=== PATIENT | male | born 1985 | race Caucasian/White ===

== ENCOUNTER 2016-12-09 10:14 | Emergency (ER) | payer BC ==
[2016-12-09 10:17] VITALS: BP 141/83; PULSE 87; RESP 20; TEMP 98.1
[2016-12-09] MEDS ORDERED: PROPARACAINE 0.5% OPHTH DROPS 15 ML BTL LEFT EYE SCH (10:45)
--- NOTE | 2016-12-09 10:52 | ED ---
General Adult HPI - General Chief complaint: Eye Problems Stated complaint: FB in eye Time Seen by Provider: 12/09/16 10:25 Source: patient, RN notes reviewed, old records reviewed Mode of arrival: ambulatory Limitations: no limitations - History of Present Illness Initial comments: This is a 31-year-old male ER for evaluation. The patient presents for evaluation of eye pain, left eye pain and drainage, patient has no injury, no noted foreign body and no vision changes. Eye is not painful is red and injected with drainage. Patient's symptoms for 2 days, and has just been consistent. Patient has never had problems with eyes before. No vision changes. - Related Data Allergies Allergy/AdvReac Type Severity Reaction Status Date / Time No Known Allergies Allergy Verified 12/09/16 10:17 Review of Systems ROS Statement: Those systems with pertinent positive or pertinent negative responses have been documented in the HPI. ROS Other: All systems not noted in ROS Statement are negative. Past Medical History Past Medical History: No Reported History History of Any Multi-Drug Resistant Organisms: None Reported Past Surgical History: No Surgical Hx Reported Past Psychological History: No Psychological Hx Reported Smoking Status: Current every day smoker Past Alcohol Use History: Occasional Past Drug Use History: None Reported General Exam Limitations: no limitations General appearance: alert, in no apparent distress Head exam: Present: atraumatic, normocephalic, normal inspection Eye exam: Present: normal appearance, PERRL, EOMI, conjunctival injection ( Generalized), other (Fluorescein test shows no abrasion, no foreign object found ). Absent: scleral icterus, periorbital swelling ENT exam: Present: normal exam, mucous membranes moist Neck exam: Present: normal inspection. Absent: tenderness, meningismus, lymphadenopathy Respiratory exam: Present: normal lung sounds bilaterally. Absent: respiratory distress, wheezes, rales, rhonchi, stridor Cardiovascular Exam: Present: regular rate, normal rhythm, normal heart sounds. Absent: systolic murmur, diastolic murmur, rubs, gallop, clicks GI/Abdominal exam: Present: soft, normal bowel sounds. Absent: distended, tenderness, guarding, rebound, rigid Extremities exam: Present: normal inspection, full ROM, normal capillary refill. Absent: tenderness, pedal edema, joint swelling, calf tenderness Back exam: Present: normal inspection Neurological exam: Present: alert, oriented X3, CN II-XII intact Psychiatric exam: Present: normal affect, normal mood Skin exam: Present: warm, dry, intact, normal color. Absent: rash Course Vital Signs 12/09/16 10:15 Temperature 98.1 F Pulse Rate 87 Respiratory 20 Rate Blood Pressure 141/83 O2 Sat by Pulse 97 Oximetry Medical Decision Making - Medical Decision Making 31 male the ER for evaluation of eye pain, left eye conjunctivitis, likely bacterial she with appropriate antibiotic drops and discharged home Disposition Clinical Impression: Conjunctivitis, left eye, Bacterial conjunctivitis Disposition: ADMITTED IP TO THIS HOSP Condition: Fair Instructions: Conjunctivitis (ED) Referrals: Rambo Ruiz MD [Primary Care Provider] - 1-2 days
[2016-12-09] MEDS ORDERED: PROPARACAINE 0.5% OPHTH DROPS 15 ML BTL ONE (13:53)
== END 2016-12-09 11:03 | disposition home or self-care (01) ==
LOC: EC 10:14
DX: H10.89 Other conjunctivitis (principal); F17.200 Nicotine dependence, unspecified, uncomplicated
CPT/HCPCS: 99283

== ENCOUNTER 2017-12-19 18:47 | Emergency (ER) | payer BC ==
[2017-12-19 19:02] VITALS: BP 144/105; PULSE 90; RESP 20; TEMP 99.1
--- NOTE | 2017-12-19 19:32 | ED ---
General Adult HPI - General Chief complaint: Extremity Problem,Nontraumatic Stated complaint: Shoulder pain Time Seen by Provider: 12/19/17 19:13 Source: patient Mode of arrival: ambulatory Limitations: no limitations - History of Present Illness Initial comments: 32-year-old female presents to the emergency department for a chief complaint of left sided upper back pain times one month. Patient states it feels like a muscle spasm. Patient states he saw his doctor who diagnosed with a muscle spasm and prescribed him Motrin and Flexeril. Patient states that Motrin does not help. Patient states the Flexeril seems to make it worse so he stopped taking it. 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 Patient denies any pain in the neck or spine. Patient denies any pain in the shoulder or left arm. Patient has no other complaints at this time including shortness of breath, chest pain, abdominal pain, nausea or vomiting, headache, or visual changes. - Related Data Previous Rx's Medication Instructions Recorded Polymyxin B-Trimethoprim Ophth 2 drops LEFT EYE Q4H #1 bottle 12/09/16 [Polytrim Opthalmic] Diazepam [Valium] 5 mg PO Q8HR PRN 3 Days #9 tab 12/19/17 Allergies Allergy/AdvReac Type Severity Reaction Status Date / Time No Known Allergies Allergy Verified 12/09/16 10:17 Review of Systems ROS Statement: Those systems with pertinent positive or pertinent negative responses have been documented in the HPI. ROS Other: All systems not noted in ROS Statement are negative. Past Medical History Past Medical History: No Reported History History of Any Multi-Drug Resistant Organisms: None Reported Past Surgical History: No Surgical Hx Reported Past Psychological History: No Psychological Hx Reported Smoking Status: Current every day smoker Past Alcohol Use History: Occasional Past Drug Use History: None Reported General Exam Limitations: no limitations General appearance: alert, in no apparent distress Head exam: Present: atraumatic, normocephalic, normal inspection Eye exam: Present: normal appearance, PERRL, EOMI. Absent: scleral icterus, conjunctival injection, periorbital swelling ENT exam: Present: normal exam, normal oropharynx, mucous membranes moist Neck exam: Present: normal inspection, full ROM. Absent: tenderness, meningismus, lymphadenopathy Respiratory exam: Present: normal lung sounds bilaterally. Absent: respiratory distress, wheezes, rales, rhonchi, stridor Cardiovascular Exam: Present: regular rate, normal rhythm, normal heart sounds. Absent: systolic murmur, diastolic murmur, rubs, gallop, clicks Extremities exam: Present: full ROM (Full range of motion in the left shoulder.) , normal capillary refill (Refill less than 2 seconds and radial pulse 2+ in the left shoulder.), other (Sensation intact in the left upper extremity.). Absent: tenderness (No tenderness in the left shoulder.) Back exam: Present: full ROM, tenderness (Patient has tenderness between the scapula and thoracic spine on the left side upper back.), muscle spasm (There is a palpable muscle spasm between the scapula and thoracic spine on the left side of the back. When palpated it reproduces the pain.), paraspinal tenderness , vertebral tenderness, other. Absent: CVA tenderness (R), CVA tenderness (L) Neurological exam: Present: alert, oriented X3, CN II-XII intact Course Vital Signs 12/19/17 18:59 Temperature 99.1 F Pulse Rate 90 Respiratory 20 Rate Blood Pressure 144/105 O2 Sat by Pulse 98 Oximetry Medical Decision Making - Medical Decision Making 32-year-old male presents to the emergency department for a chief complaint of left upper back pain. Patient saw his primary and was given Motrin and Flexeril. No injuries. No neck pain or back pain otherwise. 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 On exam patient has a palpable knot between the left scapula and thoracic spine. No tenderness along the spine or shoulder. This is likely the cause of his pain. Patient will be given Valium. He was educated to not take this while driving or operating any machinery. He will continue Motrin. He will get a massage to see if that helps loosen up the muscle. He will apply heat to the area. He will follow up with primary care in 1-2 days or after massage if it does not get better. Patient states his primary is open to discussing more options if the pain does not subside. Disposition Clinical Impression: Muscle spasm Disposition: HOME SELF-CARE Condition: Good Instructions: Muscle Spasm (ED) Additional Instructions: Please use Motrin or Tylenol for pain relief. Please apply heat to the area. You may take Valium when you're not driving or operating machinery. Follow up with primary care in 1-2 days. Return to the emergency department if you've any worsening symptoms. Prescriptions: Diazepam [Valium] 5 mg PO Q8HR PRN 3 Days #9 tab PRN Reason: Pain Is patient prescribed a controlled substance at d/c from ED?: Yes Referrals: Rambo Ruiz MD [Primary Care Provider] - 1-2 days Time of Disposition: 19:31
== END 2017-12-19 19:41 | disposition home or self-care (01) ==
LOC: EC 18:47
DX: M62.830 Muscle spasm of back (principal); M54.6 Pain in thoracic spine; F17.200 Nicotine dependence, unspecified, uncomplicated
CPT/HCPCS: 99283

== ENCOUNTER 2017-12-27 17:30 | Emergency (ER) | payer BC ==
[2017-12-27 17:56] VITALS: BP 130/65; PULSE 100; RESP 20; TEMP 99.5
--- NOTE | 2017-12-27 19:14 | XR ---
EXAMINATION TYPE: XR shoulder complete LT DATE OF EXAM: 12/27/2017 COMPARISON: NONE HISTORY: Shoulder pain TECHNIQUE: 3 views FINDINGS: There is narrowing of the glenohumeral joint space. There is spurring on the humeral head. I see no fracture nor dislocation. 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 No fracture.
--- NOTE | 2017-12-27 19:15 | XR ---
EXAMINATION TYPE: XR thoracic spine complete DATE OF EXAM: 12/27/2017 COMPARISON: NONE HISTORY: Back pain TECHNIQUE: 3 views FINDINGS: Thoracic vertebra have normal spacing and alignment. Posterior elements are intact. There i s no paraspinal mass. I see no compression fracture. IMPRESSION: Normal thoracic spine exam.
--- NOTE | 2017-12-27 19:52 | ED ---
General Adult HPI - General Chief complaint: Extremity Injury, Upper Stated complaint: LEFT SHOULDER PAIN Time Seen by Provider: 12/27/17 17:54 Source: patient, RN notes reviewed Mode of arrival: ambulatory Limitations: no limitations - History of Present Illness Initial comments: 32-year-old male presents to the emergency department for a chief complaint of left upper back pain for over one month. Patient denies any injuries. Patient states he thinks it is muscular. Patient states he has previously seen his primary care provider who said 2 return if symptoms. Patient states primary care provider is willing to order MRI. Patient was also seen for the same complaint about a week ago in the emergency department and given muscle relaxers and Motrin. He states this is not helping. 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 Patient states he received a massage which made it feel better for about a day but it continued to her after that. Patient would like x-rays at this time. Patient has no other complaints at this time including shortness of breath, chest pain, abdominal pain, nausea or vomiting, headache, or visual changes. - Related Data Home Medications Medication Instructions Recorded Confirmed Ibuprofen [Motrin] 800 mg PO TID PRN 12/27/17 12/27/17 Allergies Allergy/AdvReac Type Severity Reaction Status Date / Time No Known Allergies Allergy Verified 12/27/17 17:53 Review of Systems ROS Statement: Those systems with pertinent positive or pertinent negative responses have been documented in the HPI. ROS Other: All systems not noted in ROS Statement are negative. Past Medical History Past Medical History: No Reported History History of Any Multi-Drug Resistant Organisms: None Reported Past Surgical History: No Surgical Hx Reported Past Psychological History: No Psychological Hx Reported Smoking Status: Current every day smoker Past Alcohol Use History: Occasional Past Drug Use History: None Reported General Exam Limitations: no limitations General appearance: alert, in no apparent distress Respiratory exam: Present: normal lung sounds bilaterally. Absent: respiratory distress, wheezes, rales, rhonchi, stridor Cardiovascular Exam: Present: regular rate, normal rhythm, normal heart sounds. Absent: systolic murmur, diastolic murmur, rubs, gallop, clicks Extremities exam: Present: full ROM (Full range of motion of the left shoulder) , normal capillary refill (Refill less than 2 seconds and radial pulse 2+ in the left upper extremity.), other (Sensation intact in the left upper extremity) . Absent: tenderness (No tenderness of the left shoulder), pedal edema, joint swelling Back exam: Present: full ROM, tenderness (Patient has mild tenderness between the left shoulder blade in the thoracic spine.). Absent: CVA tenderness (R), CVA tenderness (L), vertebral tenderness Psychiatric exam: Present: normal affect, normal mood Skin exam: Present: warm, dry, intact, normal color. Absent: rash Course Vital Signs 12/27/17 17:46 Temperature 99.5 F Pulse Rate 100 Respiratory 20 Rate Blood Pressure 130/65 O2 Sat by Pulse 98 Oximetry Medical Decision Making - Medical Decision Making 32-year-old male presents to the emergency department for a chief complaint of left upper back pain times over 1 month. Patient was seen here in the emergency department and given muscle relaxers which did not help. Patient was also seen by his primary care who prescribed this relaxers and Motrin. He was told by his primary care provider that he could come back and have an MRI ordered. Patient presents to the ER today because the pain is not yet resolved. Patient has been taking Motrin. Patient has full range of motion of the left upper extremity. Neurovascular intact. Patient has mild tenderness between the left shoulder blade and thoracic spine. No tenderness on the spine itself. Full range of motion in the back. X-ray was ordered of the left shoulder and left thoracic spine which showed no acute fractures or abnormalities. At this point patient was given a referral to orthopedics. Patient states he will contact his primary care provider on Saturday and have the MRI ordered. He will also follow-up with orthopedics as soon as possible. He will return to the emergency department if he has any worsening symptoms. Disposition Clinical Impression: Shoulder pain, left Disposition: HOME SELF-CARE Condition: Good Instructions: Shoulder Pain (ED) Additional Instructions: Continue to take motrin for pain relief. Please contact your primary care provider for follow-up studies. You may follow up with orthopedics in one to 2 days. Please return to the emergency department if you have any worsening symptoms. Is patient prescribed a controlled substance at d/c from ED?: No Referrals: Rambo Ruiz MD [Primary Care Provider] - 1-2 days Roosevelt Wilkes DO [Doctor of Osteopathic Medicine] - 1-2 days Time of Disposition: 19:50
== END 2017-12-27 20:03 | disposition home or self-care (01) ==
LOC: EC 17:30
DX: M25.512 Pain in left shoulder (principal); M54.6 Pain in thoracic spine; F17.200 Nicotine dependence, unspecified, uncomplicated
CPT/HCPCS: 72072; 99283